=== PATIENT | female | born 1985 ===

== ENCOUNTER 2018-06-18 03:55 | Emergency (ER) | payer SELFPAY ==
[~2018-06-18] VITALS: Ht 157.5 cm; Wt 49.9 kg
--- OUTSIDE RECORDS SUMMARY | 2018-06-18 04:00 | XMS REPORT ---
Author Author Travis Sena [facility] Address [address] [place], [place] [id number] Care Team Providers Care Station Baggage Porter Name Role Phone Travis Sena PCP Allergies and Adverse Reactions Name Reaction Notes NO KNOWN DRUG ALLERGIES Plan of Treatment Planned Activity Comments Planned Date Planned Time Plan/Goal BMP 09/24/2016 12:00 AM CBC With Auto Differential 09/24/2016 12:00 AM Hemoglobin A1C 09/24/2016 12:00 AM BMP 12/21/2016 12:00 AM CBC With Auto Differential 12/21/2016 12:00 AM Hemoglobin A1C 12/21/2016 12:00 AM BMP 05/13/2017 12:00 AM CBC With Auto Differential 05/13/2017 12:00 AM Hemoglobin A1C 05/13/2017 12:00 AM Medications Active Name Start Date Estimated Completion Date SIG Comments FreeStyle Lite Strips miscellaneous strip 11/01/2017 tests blood sugar 6 to 8 times daily Novolog U-100 Insulin aspart 100 unit/mL subcutaneous solution 11/02/2017 inject by subcutaneous route per insulin dosing requires sliding scale due to insulin pump. 1 unit of novolog for every 10 carbs. 1 unit of novolog for every 50 it is over 120 for her blood sugars. Loads insulin pump w/175 units every 3 days Vyvanse 60 mg oral capsule 02/08/2018 03/10/2018 take 1 capsule (60 mg) by oral route once daily in the morning for 30 days Name Start Date Expiration Date SIG Comments Augmentin 875-125 mg oral tablet 11/01/2017 11/08/2017 take 1 tablet by oral route every 12 hours for 7 days Discontinued Name Start Date Discontinued Date SIG Comments Tamiflu 75 mg oral capsule 10/12/2017 11/01/2017 take 1 capsule (75 mg) by oral route once daily for 10 days Problem List Not available. Vital Signs Date Time BP-Sys(mm[Hg] BP-Elenita(mm[Hg]) HR(bpm) RR(rpm) Temp WT HT HC BMI BSA BMI Percentile O2 Sat(%) 02/08/2018 4:03:00 PM 100 mmHg 64 mmHg 103 bpm 18 rpm 98.2 F 90.25 lbs 60 in 17.6256 kg/m 1.3164 m 100 % 11/01/2017 4:06:00 PM 112 mmHg 70 mmHg 92 bpm 18 rpm 97.8 F 91.125 lbs 60 in 17.80 kg/m2 1.32 m2 100 % 08/12/2017 3:29:00 PM 100 mmHg 60 mmHg 86 bpm 16 rpm 97.2 F 91.25 lbs 60 in 17.82 kg/m2 1.32 m2 100 % 05/13/2017 3:43:00 PM 110 mmHg 68 mmHg 80 bpm 18 rpm 97.5 F 91.5 lbs 60 in 17.8697 kg/m 1.3255 m 100 % 12/21/2016 8:54:00 AM 100 mmHg 62 mmHg 86 bpm 16 rpm 97.1 F 91.6 lbs 60 in 17.89 kg/m2 1.33 m2 100 % 09/24/2016 10:02:00 AM 118 mmHg 70 mmHg 92 bpm 18 rpm 97.6 F 95 lbs 60 in 18.5532 kg/m 1.3506 m 100 % Social History Name Description Comments Tobacco Current every day smoker smokes 1/2 myra daily History of Procedures Date Ordered Description Order Status 08/12/2017 12:00 AM FLU VAC NO PRSV 4 ROSCOE 3 YRS+ Reviewed Results Summary Not available. History Of Immunizations Name Date Admin Mfg Name Mfg Code Trade Name Lot# Route Inj Vis Given Vis Pub CVX Influenza 08/12/2017 [employer]ax[employer]ir[employer] SKB FLULAVAL [id number] Intramuscular Left Deltoid 08/12/2017 04/19/2015 150 History of Past Illness Name Date of Onset Comments ADHD Diabetes type 1, uncontrolled Diabetes Mellitus, Type I ADD (attention deficit disorder) Sep 24 2016 10:14AM Diabetes mellitus type 1 Sep 24 2016 10:14AM ADD (attention deficit disorder) Dec 21 2016 9:00AM Diabetes mellitus type 1 Dec 21 2016 9:00AM ADD (attention deficit disorder) May 13 2017 3:45PM Diabetes mellitus type 1 May 13 2017 3:45PM Adult attention deficit disorder May 13 2017 3:45PM ADD (attention deficit disorder) Aug 12 2017 3:30PM Sinusitis Nov 01 2017 4:08PM joint terminal attack controller (current) use of insulin Nov 01 2017 4:08PM Type 1 diabetes Nov 01 2017 4:08PM ADD (attention deficit disorder) Nov 01 2017 4:08PM ADD (attention deficit disorder) Feb 08 2018 4:05PM Payers Insurance Name Company Name Plan Name Plan Number Policy Number Policy Group Number Start Date Cigna CIGNA [id number] N/A [facility] [id number] N/A BCBS [facility] [id number] N/A History of Encounters Visit Date Visit Type Provider 02/08/2018 Office visit Travis Sena MD 11/01/2017 Office visit Travis Sena MD 08/12/2017 Office visit Travis Sena MD 05/13/2017 Office visit Travis Sena MD 12/21/2016 Office visit Travis Sena MD 09/24/2016 Office visit Travis Sena MD 11/15/2013 [facility] Padmini Ceballos MD 04/18/2010 [facility] Padmini Ceballos MD 07/19/2009 Office visit Rashid Sanchez DO
--- OUTSIDE RECORDS SUMMARY | 2018-06-18 04:00 | XMS REPORT ---
Author Author Travis Sena [facility] Address [address] [place], [place] [id number] Care Team Providers Care Energy Engineer Name Role Phone Travis Sena PCP Allergies [...] U-100 Insulin aspart 100 unit/mL subcutaneous solution 11/01/2017 inject by subcutaneous route per insulin dosing requires individualization sliding scale due to insulin pump Vyvanse 60 mg oral capsule 11/01/2017 12/01/2017 take 1 capsule (60 mg) by oral route once daily in the morning for 30 days Augmentin 875-125 mg oral tablet 11/01/2017 11/08/2017 [...] HC BMI BSA BMI Percentile O2 Sat(%) 11/01/2017 4:06:00 PM 112 mmHg 70 mmHg 92 bpm 18 rpm 97.8 F 91.125 lbs 60 in 17.80 kg/m2 1.32 m2 100 % 08/12/2017 3:29:00 PM 100 mmHg 60 mmHg 86 bpm 16 rpm 97.2 F 91.25 lbs 60 in 17.8209 kg/m 1.3237 m 100 % 05/13/2017 3:43:00 PM 110 mmHg 68 mmHg 80 bpm 18 rpm 97.5 F 91.5 lbs 60 in 17.87 kg/m2 1.33 m2 100 % 12/21/2016 8:54:00 AM 100 mmHg 62 mmHg 86 bpm 16 rpm 97.1 F 91.6 lbs 60 in 17.8892 kg/m 1.3262 m 100 % 09/24/2016 10:02:00 AM 118 mmHg 70 mmHg 92 bpm 18 rpm 97.6 F 95 lbs 60 in 18.55 kg/m2 1.35 m2 100 % Social History Name Description Comments Tobacco Current every day smoker smokes 1/2 myra daily History of Procedures Date Ordered Description Order Status 08/12/2017 12:00 AM FLU VAC NO PRSV 4 ROSCOE 3 YRS+ Reviewed Results Summary Not available. History Of Immunizations Name Date Admin Mfg Name Mfg Code Trade Name Lot# Route Inj Vis Given Vis Pub CVX Influenza 08/12/2017 GlaxoSm[employer] SKB Flulaval [id number] Intramuscular Left Deltoid 08/12/2017 04/19/2015 150 [...] 2017 3:30PM Sinusitis Nov 01 2017 4:08PM alf (current) use of insulin Nov 01 2017 4:08PM Type 1 diabetes Nov 01 2017 4:08PM ADD (attention deficit disorder) Nov 01 2017 4:08PM Payers Insurance Name Company Name Plan Name Plan Number Policy Number Policy Group Number Start Date Nino CID [id number] N/A [facility] Benefit Services [facility] [id number] N/A BCBS [employer] [facility] [id number] N/A History of Encounters Visit Date Visit Type Provider 11/01/2017 Office visit Travis Sena MD 08/12/2017 Office visit Travis Sena MD 05/13/2017 Office visit Travis Sena MD 12/21/2016 Office visit Travis Sena MD 09/24/2016 Office visit Travis Sena MD 11/15/2013 [facility] Padmini Ceballos MD 04/18/2010 [facility] Padmini Ceballos MD 07/19/2009 Office visit Rashid Sanchez DO
--- OUTSIDE RECORDS SUMMARY | 2018-06-18 04:00 | XMS REPORT ---
Author Author Travis Sena [facility] Address [address] [place], [place] [id number] Care Team Providers Care Quartz Miner Name Role Phone Travis Sena PCP Allergies [...] 12:00 AM Hemoglobin A1C 05/13/2017 12:00 AM Flu vaccine 3 yrs & older, Quadrivalent, Preservative-free (single-dose syringe ) 08/12/2017 12:00 AM Medications Active Name Start Date Estimated Completion Date SIG Comments Novolog 100 unit/mL subcutaneous solution 09/24/2016 inject by subcutaneous route per insulin dosing requires individualization sliding scale due to insulin pump FreeStyle Lite Strips miscellaneous strip 09/24/2016 tests blood sugar 6 to 8 times daily Vyvanse 50 mg oral capsule 08/12/2017 09/11/2017 take 1 capsule (50 mg) by oral route once daily in the morning for 30 days Problem List Not available. Vital Signs Date Time BP-Sys(mm[Hg] BP-Elenita(mm[Hg]) HR(bpm) RR(rpm) Temp WT HT HC BMI BSA BMI Percentile O2 Sat(%) 08/12/2017 3:29:00 PM 100 mmHg 60 mmHg [...] smokes 1/2 myra daily History of Procedures Not available. Results Summary Not available. History Of Immunizations Not available. History of Past Illness Name Date of [...] (attention deficit disorder) Aug 12 2017 3:30PM Payers Insurance Name Company Name Plan Name Plan Number Policy Number Policy Group Number Start Date Cigna CIGNA [id number] N/A [facility] [id number] [facility] [id number] N/A History of Encounters Visit Date Visit Type Provider 08/12/2017 Office visit Travis Sena MD 05/13/2017 Office visit Travis Sena MD 12/21/2016 Office visit Travis Sena MD 09/24/2016 Office visit Travis Sena MD 11/15/2013 [facility] Padmini Ceballos MD 04/18/2010 [facility] Padmini Ceballos MD 07/19/2009 Office visit Rashid Sanchez DO
--- OUTSIDE RECORDS SUMMARY | 2018-06-18 04:00 | XMS REPORT | CCD ---
Author Author HAMILTON DWYER Unknown Address [address] [place], [place] [id number] Care Team Providers Care Medical Record Librarian Name Role Phone [facility] Attphys ARY RUANO DO Prisurg ESPERANZA Sears NASST BARBARA Lange NASST Vital Signs Vital Sign Value Unit Date/Time Recent/Initial? BP Systolic 113 mmHg 03/16/2016 13:40 Initial VS BP Diastolic 59 mmHg 03/16/2016 13:40 Initial VS Respiratory Rate 23 bpm 03/16/2016 13:40 Initial VS Heart Rate 113 bpm 03/16/2016 13:40 Initial VS Body Temperature 98.8 degrees 03/16/2016 13:50 Initial VS O2 % BldC Oximetry 100 % 03/16/2016 14:01 Initial VS Weight Measured 90 lbs 03/16/2016 15:03 Initial VS Height 59 in 03/16/2016 15:03 Initial VS BMI (Body Mass Index) 18.18 kg/m^2 03/16/2016 15:03 Initial VS BSA (Body Surface Area) 1.3 m^2 03/16/2016 15:03 Initial VS Weight Measured 102.7 lbs 03/17/2016 06:18 Most Recent VS Height 59 in 03/17/2016 06:18 Most Recent VS BMI (Body Mass Index) 20.74 kg/m^2 03/17/2016 06:18 Most Recent VS BSA (Body Surface Area) 1.39 m^2 03/17/2016 06:18 Most Recent VS Body Temperature 97.1 degrees 03/17/2016 08:00 Most Recent VS Respiratory Rate 17 bpm 03/17/2016 10:01 Most Recent VS BP Systolic 113 mmHg 03/17/2016 11:58 Most Recent VS BP Diastolic 71 mmHg 03/17/2016 11:58 Most Recent VS Heart Rate 90 bpm 03/17/2016 11:58 Most Recent VS O2 % BldC Oximetry 99 % 03/17/2016 11:58 Most Recent VS Allergies Allergy Code Allergy Type Reaction Status No Known Allergies 0 No known allergies Active Procedures Procedure Code Procedure Type Date ABDOMEN ACUTE SERIES 2738734 SNOMED CT 03/16/2016 BEDSIDE GLUCOSE 81087811 SNOMED CT 03/17/2016 BEDSIDE GLUCOSE 10087576 SNOMED CT 03/17/2016 BEDSIDE GLUCOSE 11470129 SNOMED CT 03/17/2016 BEDSIDE GLUCOSE 52764284 SNOMED CT 03/17/2016 BEDSIDE GLUCOSE 49636062 SNOMED CT 03/17/2016 BEDSIDE GLUCOSE 57722736 SNOMED CT 03/16/2016 BEDSIDE GLUCOSE 83758534 SNOMED CT 03/16/[address] 03/17/[address] 03/17/[address] 03/17/2016 COMPREHENSIVE METABOLIC PANEL 415250135 SNOMED CT 2015 CBC W/ AUTO DIFF (RFLX MAN DIFF IF IND) 1182014 SNOMED CT 03/17/2016 LIPID PANEL W/LDL 84516195 SNOMED CT 03/17/2016 MICROALBUMIN UR RANDOM 007393195 SNOMED CT 03/16/2016 BEDSIDE GLUCOSE 89906900 SNOMED CT 03/16/2016 BEDSIDE GLUCOSE 48589971 SNOMED CT 03/16/2016 HEMOGLOBIN A1C 35783910 SNOMED CT 03/16/[address] 03/16/2016 BASIC METABOLIC PANEL 738845960 SNOMED CT 03/16/2016 BEDSIDE GLUCOSE 17477479 SNOMED CT 03/16/2016 LACT[address]ID 1505[address] 03/16/[address] 03/16/[address] 03/16/2016 BEDSIDE GLUCOSE 02170677 SNOMED CT 03/16/[address] 03/16/2016 RAPID DRUG SCREEN 747102142 SNOMED CT 03/16/2016 CULTURE BLOOD 23934735 SNOMED CT 03/16/[address] 03/16/[address] 03/16/2016 VENOUS BLOOD GAS 86751917 SNOMED CT 03/16/2016 UA ROUTINE C&S IF IND 478370042 SNOMED CT 03/16/2016 COMPREHENSIVE METABOLIC PANEL 981629093 SNOMED CT 2015 CBC W/ AUTO DIFF (RFLX MAN DIFF IF IND) 9196779 SNOMED CT 03/16/2016 ^CBC W/AUTO DIFF 3191815 SNOMED CT 03/17/2016 ^UA WITH MICRO 068486818 SNOMED CT 03/16/2016 ^CBC W/ MANUAL DIFF 26220188 SNOMED CT 03/16/2016 History of Immunizations Immunization Code Date Tdap 115 11/17/2013 Influenza, seasonal, injectable 141 10/16/2011 Problems Problem Code Start Date Resolved Date Status DKA 121589216 Active Vomiting 949842210 Active Fever 998971542 Active DELIVERY NOS 14822 11/15/2013 03/17/2016 Resolved Insulin dependent diabetes mellitus 18480669 03/17/2016 Resolved Post op pain 599885402 11/15/2013 03/17/2016 Resolved Results BASIC METABOLIC PANEL - Collect Date/Time: 03/16/2016 16:25 Test Name Code Test Result Test Units Test Ref Range GLUCOSE 2345-7 159 MG/DL L=70 H=100 SODIUM 2951-2 136 MEQ/L L=135 H=148 POTASSIUM 2823-3 4.4 MEQ/L L=3.5 H=5.3 CHLORIDE 2075-0 109 MEQ/L L=96 H=110 CO2 2028-9 16 MEQ/L L=22 H=29 BUN 3094-0 15 MG/DL L=8 H=22 CREATININE 2160-0 0.7 MG/DL L=0.6 H=1.6 CALCIUM 16017-1 8.2 MG/DL L=8.2 H=10.6 AGE 31 yrs GFR NonAA 99 GFR AA 120 eGFR >60 N/A eGFR AA* >60 N/A BEDSIDE GLUCOSE - Collect Date/Time: 03/17/2016 11:53 Test Name Code Test Result Test Units Test Ref Range GLUCOSE POCT 229 MG/DL L=70 H=100 BEDSIDE GLUCOSE - Collect Date/Time: 03/17/2016 08:21 Test Name Code Test Result Test Units Test Ref Range GLUCOSE POCT 234 MG/DL L=70 H=100 BEDSIDE GLUCOSE - Collect Date/Time: 03/17/2016 06:39 Test Name Code Test Result Test Units Test Ref Range GLUCOSE POCT 99 MG/DL L=70 H=100 BEDSIDE GLUCOSE - Collect Date/Time: 03/17/2016 06:17 Test Name Code Test Result Test Units Test Ref Range GLUCOSE POCT 44 MG/DL L=70 H=100 BEDSIDE GLUCOSE - Collect Date/Time: 03/17/2016 02:05 Test Name Code Test Result Test Units Test Ref Range GLUCOSE POCT 114 MG/DL L=70 H=100 BEDSIDE GLUCOSE - Collect Date/Time: 03/16/2016 23:42 Test Name Code Test Result Test Units Test Ref Range GLUCOSE POCT 169 MG/DL L=70 H=100 BEDSIDE GLUCOSE - Collect Date/Time: 03/16/2016 21:15 Test Name Code Test Result Test Units Test Ref Range GLUCOSE POCT 302 MG/DL L=70 H=100 BEDSIDE GLUCOSE - Collect Date/Time: 03/16/2016 16:24 Test Name Code Test Result Test Units Test Ref Range GLUCOSE POCT 161 MG/DL L=70 H=100 BEDSIDE GLUCOSE - Collect Date/Time: 03/16/2016 15:08 Test Name Code Test Result Test Units Test Ref Range GLUCOSE POCT 194 MG/DL L=70 H=100 BEDSIDE GLUCOSE - Collect Date/Time: 03/16/2016 13:40 Test Name Code Test Result Test Units Test Ref Range GLUCOSE POCT 257 MG/DL L=70 H=100 BEDSIDE GLUCOSE - Collect Date/Time: 03/16/2016 11:22 Test Name Code Test Result Test Units Test Ref Range GLUCOSE POCT 343 MG/DL L=70 H=100 COMPREHENSIVE METABOLIC PANEL - Collect Date/Time: 03/17/2016 06:15 Test Name Code Test Result Test Units Test Ref Range GLUCOSE 2345-7 44 MG/DL L=70 H=100 SODIUM 2951-2 139 MEQ/L L=135 H=148 POTASSIUM 2823-3 3.7 MEQ/L L=3.5 H=5.3 CHLORIDE 2075-0 111 MEQ/L L=96 H=110 CO2 2028-9 21 MEQ/L L=22 H=29 BUN 3094-0 11 MG/DL L=8 H=22 CREATININE 2160-0 0.6 MG/DL L=0.6 H=1.6 SGOT/AST 1920-8 23 IU/L L=10 H=40 SGPT/ALT 1742-6 27 IU/L L=8 H=54 ALK PHOS 6768-6 46 IU/L L=35 H=115 TOTAL PROTEIN 2885-2 5.1 G/DL L=5.5 H=8.5 ALBUMIN 1751-7 3.5 G/DL L=3.1 H=5.4 TOTAL BILI 1975-2 0.9 MG/DL L=0.0 H=1.5 CALCIUM 08814-2 8.3 MG/DL L=8.2 H=10.6 AGE 31 yrs GFR NonAA 118 GFR AA 143 eGFR >60 N/A eGFR AA* >60 N/A COMPREHENSIVE METABOLIC PANEL - Collect Date/Time: 03/16/2016 11:30 Test Name Code Test Result Test Units Test Ref Range GLUCOSE 2345-7 409 MG/DL L=70 H=100 SODIUM 2951-2 137 MEQ/L L=135 H=148 POTASSIUM 2823-3 4.9 MEQ/L L=3.5 H=5.3 CHLORIDE 2075-0 98 MEQ/L L=96 H=110 CO2 2028-9 11 MEQ/L L=22 H=29 BUN 3094-0 19 MG/DL L=8 H=22 CREATININE 2160-0 1.2 MG/DL L=0.6 H=1.6 SGOT/AST 1920-8 41 IU/L L=10 H=40 SGPT/ALT 1742-6 37 IU/L L=8 H=54 ALK PHOS 6768-6 80 IU/L L=35 H=115 TOTAL PROTEIN 2885-2 7.7 G/DL L=5.5 H=8.5 ALBUMIN 1751-7 5.0 G/DL L=3.1 H=5.4 TOTAL BILI 1975-2 0.6 MG/DL L=0.0 H=1.5 CALCIUM 68425-8 10.2 MG/DL L=8.2 H=10.6 AGE 31 yrs GFR NonAA 53 GFR AA 64 eGFR 53 mL/min/1.7 eGFR AA* >60 N/A LIPASE - Collect Date/Time: 03/16/2016 11:30 Test Name Code Test Result Test Units Test Ref Range LIPASE 3040-3 16 U/L L=8 H=78 LIPID PANEL W/LDL - Collect Date/Time: 03/17/2016 06:15 Test Name Code Test Result Test Units Test Ref Range TRIGLYCERIDES 3043-7 92 MG/DL L=0 H=135 CHOLESTEROL 2093-3 106 MG/DL L=0 H=199 HDL 2085-9 55 MG/DL L=29 H=89 TOT CHOL/HDL 1.9 L=0.0 H=5.0 LDL 2089-1 27 MG/DL L=0 H=129 MICROALBUMIN UR RANDOM - Collect Date/Time: 03/16/2016 17:45 Test Name Code Test Result Test Units Test Ref Range MICROALBUMIN UR <0.5 MG/DL L=0.0 H=1.7 ALCOHOL - Collect Date/Time: 03/16/2016 11:30 Test Name Code Test Result Test Units Test Ref Range ETHANOL 5640-8 <10 MG/DL RAPID DRUG SCREEN - Collect Date/Time: 03/16/2016 14:00 Test Name Code Test Result Test Units Test Ref Range Cannabinoids (THC) NEGATIVE N/A NEG: < 50 ng/ ml Phencyclidine (PCP) NEGATIVE N/A NEG: < 25 ng/ ml Cocaine NEGATIVE N/A NEG: < 300 ng/ml Methamphetamine NEGATIVE N/A NEG: < 1000 ng/ml Opiates NEGATIVE N/A NEG: < 300 ng/ml Amphetamine NEGATIVE N/A NEG: < 1000 ng/ml Benzodiazepines NEGATIVE N/A NEG: < 300 ng/ml Tricyclic Antidepres NEGATIVE N/A NEG: < 300 ng/ ml Methadone NEGATIVE N/A NEG: < 300 ng/ml Barbiturates NEGATIVE N/A NEG: < 200 ng/ml Oxycodone NEGATIVE N/A NEG: < 100 ng/ml Propoxyphene (PPX) NEGATIVE N/A NEG: < 300 ng/ ml CBC W/ AUTO DIFF (RFLX MAN DIFF IF IND) - Collect Date/Time: 03/17/2016 06:15 Test Name Code Test Result Test Units Test Ref Range WBC 76557-5 14.7 TH/CMM L=4.5 H=10.8 RBC 789-8 4.37 ML/CMM L=4.20 H=5.40 HGB 718-7 12.7 G/DL L=12.0 H=16.0 HCT 4544-3 41.0 % L=37.0 H=47.0 MCV 94 FL L=81 H=99 MCH 29.1 PG L=27.0 H=33.0 MCHC 31.0 G/DL L=31.0 H=36.0 RDW SD 46 FL L=36 H=50 RDW CV 13.3 % L=0.0 H=14.8 MPV 9.9 FL L=9.3 H=12.5 PLT 777-3 249 TH/CMM L=130 H=440 NRBC# 0.00 TH/CMM L=0.00 H=0.00 NRBC% 0.0 /100WBC L=0.0 H=2.0 %NEUT 57.2 % %LYMP 35.4 % %MONO 6.2 % %EOS 0.7 % %BASO 0.2 % #NEUT 8.39 TH/CMM L=2.10 H=8.20 #LYMP 5.21 TH/CMM L=0.90 H=5.20 #MONO 0.91 TH/CMM L=0.16 H=1.00 #EOS 0.11 TH/CMM L=0.00 H=0.80 #BASO 0.03 TH/CMM L=0.00 H=0.20 MANUAL DIFF NOT IND N/A CBC W/ AUTO DIFF (RFLX MAN DIFF IF IND) - Collect Date/Time: 03/16/2016 11:30 Test Name Code Test Result Test Units Test Ref Range WBC 85118-8 26.3 TH/CMM L=4.5 H=10.8 RBC 789-8 5.09 ML/CMM L=4.20 H=5.40 HGB 718-7 14.8 G/DL L=12.0 H=16.0 HCT 4544-3 46.2 % L=37.0 H=47.0 MCV 91 FL L=81 H=99 MCH 29.1 PG L=27.0 H=33.0 MCHC 32.0 G/DL L=31.0 H=36.0 RDW SD 43 FL L=36 H=50 RDW CV 13.1 % L=0.0 H=14.8 MPV 9.8 FL L=9.3 H=12.5 PLT 777-3 379 TH/CMM L=130 H=440 NRBC# 0.00 TH/CMM L=0.00 H=0.00 NRBC% 0.0 /100WBC L=0.0 H=2.0 %NEUT 88.5 % %LYMP 5.1 % %MONO 5.3 % %EOS 0.0 % %BASO 0.4 % #NEUT 23.25 TH/CMM L=2.10 H=8.20 #LYMP 1.35 TH/CMM L=0.90 H=5.20 #MONO 1.38 TH/CMM L=0.16 H=1.00 #EOS 0.01 TH/CMM L=0.00 H=0.80 #BASO 0.10 TH/CMM L=0.00 H=0.20 SEGS 84 % BANDS 8 % LYMPHS 3 % MONOS 5 % MANUAL DIFF SEE BELOW N/A UA ROUTINE C&S IF IND - Collect Date/Time: 03/16/2016 13:30 Test Name Code Test Result Test Units Test Ref Range COLOR YELLOW N/A NL: YELLOW APPEARANCE CLEAR N/A NL: CLEAR SPEC GRAV 1.025 N/A NL: 1.002 - 1.022 pH 5.5 N/A NL: 5 - 9 PROTEIN NEGATIVE N/A NL: NEGATIVE mg/dl GLUCOSE >=1000 N/A NL: NEGATIVE mg/dl KETONE >=80 N/A NL: NEGATIVE mg/dl BILIRUBIN NEGATIVE N/A NL: NEGATIVE BLOOD NEGATIVE N/A NL: NEGATIVE NITRITE NEGATIVE N/A NL: NEGATIVE LEUK SCREEN NEGATIVE N/A NL: NEGATIVE MICRO INDICATED? SEE BELOW N/A WBC/HPF RARE N/A NL: NEGATIVE RBC/HPF NEGATIVE N/A NL: NEGATIVE CASTS/LPF NEGATIVE N/A NL: NEGATIVE CRYSTALS NEGATIVE N/A NL: NEGATIVE MUCOUS THRDS NEGATIVE N/A NL: NEGATIVE BACTERIA NEGATIVE N/A NL: NEGATIVE EPITH CELLS FEW SQUAMOUS N/A NL: NEGATIVE TRICHOMONAS NEGATIVE N/A NL: NEGATIVE YEAST NEGATIVE N/A NL: NEGATIVE CULT SET UP? NO N/A HEMOGLOBIN A1C - Collect Date/Time: 03/16/2016 11:30 Test Name Code Test Result Test Units Test Ref Range HGB A1C 10942-1 10.3 % L=4.0 H=6.4 Est Avg Glucose 30096-9 248.9 mg/dL TEST - Collect Date/Time: 03/16/2016 11:30 Test Name Code Test Result Test Units Test Ref Range TEST 8-8 NEGATIVE N/A T4 - Collect Date/Time: 03/17/2016 06:15 Test Name Code Test Result Test Units Test Ref Range T4 3026-2 3.9 UG/DL L=4.5 H=12.0 TSH - Collect Date/Time: 03/17/2016 06:15 Test Name Code Test Result Test Units Test Ref Range TSH 89264-5 1.46 mIU/L L=0.35 H=4.94 VENOUS BLOOD GAS - Collect Date/Time: 03/16/2016 11:30 Test Name Code Test Result Test Units Test Ref Range vPH 7.27 L=7.32 H=7.43 vPCO2 31 mmHG L=40 H=60 vPO2 48 mmHG L=30 H=55 vHCO3 14 mmol/L L=22 H=27 vTCO2 12 mmol/L L=24 H=28 vO2SAT 76 % L=40 H=85 FIO2 21 N/A vBE -12.1 N/A L=-2.0 H=2.0 LACTIC ACID - Collect Date/Time: 03/16/2016 16:25 Test Name Code Test Result Test Units Test Ref Range LACTIC ACID 2524-7 1.3 mmol/L L=0.5 H=1.6 LACTIC ACID - Collect Date/Time: 03/16/2016 11:30 Test Name Code Test Result Test Units Test Ref Range LACTIC ACID 2524-7 7.1 mmol/L L=0.5 H=1.6 MAGNESIUM - Collect Date/Time: 03/16/2016 16:25 Test Name Code Test Result Test Units Test Ref Range MAGNESIUM 28083-2 1.9 MG/DL L=1.7 H=2.8 MAGNESIUM - Collect Date/Time: 03/16/2016 11:30 Test Name Code Test Result Test Units Test Ref Range MAGNESIUM 46817-2 1.9 MG/DL L=1.7 H=2.8 PREALBUMIN - Collect Date/Time: 03/17/2016 06:15 Test Name Code Test Result Test Units Test Ref Range PREALBUMIN 57358-9 14 MG/DL L=17 H=34 Active Medications Medication Code Dose Units Frequency Route Modification Start Date/Time Lisinopril 2.5MG Oral Tablet 297588 1 TABLET DAILY BY MOUTH FOR HEART & KIDNEY PROTECTION 03/17/2016 12:02 Prescription Detail 1 TABLET BY MOUTH DAILY FOR HEART & KIDNEY PROTECTION Ranitidine 300MG Oral Tablet 659962 1 TABLET NEEDED DAILY BY MOUTH PRN DYSPEPSIA 03/17/2016 12:00 Prescription Detail 1 TABLET BY MOUTH NEEDED DAILY PRN DYSPEPSIA NovoLOG 100U/1ML Subcutaneous Solution 046577 0.9 UNIT PER HOUR VIA INSULIN PUMP SUBCUTANEOUS 03/17/2016 11 :59 Prescription Detail 0.9 UNIT SUBCUTANEOUS PER HOUR VIA INSULIN PUMP Vitamin Oral Tablet 298818 1 TABLET DAILY BY MOUTH 03/17/2016 11:59 Prescription Detail 1 TABLET BY MOUTH DAILY Medications Administered During Visit Medication Dose Units Frequency Route Date/ Time of Last Dose INSULIN DRIP 1UNIT/ML [PREDEFINED] 0.9 . PRN INTRAVENOUS 03/16/2016 16:00 NS 1000 ML IV [PREDEFINED] (7983) CONT IV IV 03/16/2016 14:27 PANTOPRAZOLE [PROTONIX] TABLET : 40 MG 40 MG DAILY PO 03/17/2016 09:20 INSULIN [NOVOLOG] 100UNITS/ML (SQ) 10ML 4.5 . Unit(s) PRN SUBCUTANEOUS 03/17/2016 08:51 NS 1000 ML IV [PREDEFINED] (7983) CONT IV IV 03/17/2016 05:53 INSULIN [NOVOLOG] 100UNITS/ML (SQ) 10ML 10 EA X1 SUB Q 03/16/2016 21:51 Encounters Encounter Diagnosis Diagnosis Code Start Date Type 1 diabetes mellitus with ketoacidosis without coma E1010 12/2015 Social History Smoking Status Code Start Date End Date Current every day smoker [id number] Patient Decision Aids Unknown or Not Available. Discharge Instructions You were admitted to [facility] on 03/16/2016 12:26 with a principal diagnosis of Type 1 diabetes mellitus with ketoacidosis without coma You had the following tests done: ALCOHOL BASIC METABOLIC PANEL BEDSIDE GLUCOSE BEDSIDE GLUCOSE BEDSIDE GLUCOSE BEDSIDE GLUCOSE BEDSIDE GLUCOSE BEDSIDE GLUCOSE BEDSIDE GLUCOSE BEDSIDE GLUCOSE BEDSIDE GLUCOSE BEDSIDE GLUCOSE BEDSIDE GLUCOSE CBC W / AUTO DIFF (RFLX MAN DIFF IF IND) CBC W/ AUTO DIFF (RFLX MAN DIFF IF IND) COMPREHENSIVE METABOLIC PANEL COMPREHENSIVE METABOLIC PANEL HEMOGLOBIN A1C LACTIC ACID LACTIC ACID LIPASE LIPID PANEL W/LDL MAGNESIUM MAGNESIUM MICROALBUMIN UR RANDOM PREALBUMIN TEST RAPID DRUG SCREEN T4 TSH UA ROUTINE C&S IF IND VENOUS BLOOD GAS You were discharged from [facility] on 03/17/2016 12:45 Should you have any questions prior to discharge, please contact a member of your healthcare team. If you have left the hospital and have any questions, please contact your primary care physician. HOME DIET: 2000 [address] DIET, DRINK AT LEAST 3 LITERS OF FLUID DAILY CONDITION AT DISMISSAL Stable. HOME MEDICATION INSTRUCTIONS: TAKE MEDICATIONS DIRECTED ACTIVITY INSTRUCTIONS(list limitations): Activity as Tolerated. RETURN TO WORK/SCHOOL: RETURN TO WORK ON WEDNESDAY, MARCH 18, 2016 SPECIAL INSTRUCTIONS: TRY TO MINIMIZE STRESS TO OPTAMIZE HEALTH CHECK BLOOD SUGAR BEFORE MEALS AND LOG. TAKE LOG WITH YOU TO DOCTOR APPOINTMENTS. IMMUNIZATIONS GIVEN DURING HOSPITALIZATION: NONE FOLLOW UP CARE - SEE YOUR PHYSICIAN: MAKE AN APPOINTMENT SOON POSSIBLE FOR INSULIN PUMP PHYSICIAN IN [place] TO HAVE ADJUSTMENTS MADE TO BETTER CONTROL BLOOD SUGARS MAKE AN APPOINTMENT FOR THIS WEEK WITH DR NUNO'S OFFICE. UNABLE TO MAKE APPOINTMENT AT THIS TIME DUE TO NO ANSWER AT OFFICE. PRIMARY CARE PHYSICIAN OR PRACTITIONER: Pedro Luis Nuno MD, . CALL YOUR PHYSICIAN IF YOU EXPERIENCE: Nausea/Vomiting, dizziness, pain. PERSONAL ITEMS RETURNED: Yes. INSTRUCTIONS GIVEN BY:(TYPE IN NAME AND DATE) ESPERANZA CASTILLO RN 03/17/16 SMOKING CESSATION: Smoking and second hand smoke is harmful, to your health.. For more information you can call:, [phone] TherapeuticsSTOP, or [phone] TherapeuticsUN[facility].. VOICES UNDERSTANDING OF INSTRUCTIONS: Yes. DISCHARGE INSTRUCTIONS GIVEN TO: Patient. BRING DISCHARGE INST TO NEXT OFFICE VISIT Yes. OTHER INSTRUCTIONS: INFORMATION ON CALORIE COUNTING PROVIDED FOR PATIENT. NEW PRESCRIPTS GIVEN TO PATIENT? YES: LISINOPRIL 2.5 MG 1 TAB BY MOUTH DAILY FOR KIDNEY AND HEART PROTECTION FROM DIABETES RANIDINE 300 MG 1 TABLET BY MOUTH DAILY NEEDED FOR INDIGESTION CHIEF COMPLAINT: DKA Chief Complaint and Reason For Visit Chief Complaint Date of Onset DKA Function Status Unknown or Not Available. Plan of Care Unknown or Not Available. Referral/Transition of Care Unknown or Not Available.
--- OUTSIDE RECORDS SUMMARY | 2018-06-18 04:01 | XMS REPORT ---
Author Author [facility] Medical Staff Organization [facility] Address [address], [place] [address] Phone [phone] Care Team Providers Care Transactional Paralegal Name Role Phone PETER BURSN, DAVID PP [phone] Summary purpose TRANSITION OF CARE AUTO GENERATION Chief Complaint and Reason for Visit No authorized Reason for Visit (Admitting Diagnosis) is available for this visit. Problem list No authorized problems tracked for continuity of care are available for this visit. Encounters No authorized problems tracked for encounter diagnoses are available for this visit. Medications No home medications recorded for this patient visit Allergies, adverse reactions, alerts No allergy information is available for this patient. Immunizations No immunizations recorded for this patient visit Relevant diagnostic tests and/or laboratory data No authorized results are available for this patient visit History of procedures No procedures recorded for this patient visit. Functional status No functional or cognitive status observations are available for this visit. Vital signs No authorized vital signs are available for this visit. Social history No Social History or smoking status observations were recorded for this visit. ( Unknown if ever smoked.) Treatment Plan No treatment plan text is available for this visit. Hospital discharge instructions No discharge instruction text is available for this visit.
--- OUTSIDE RECORDS SUMMARY | 2018-06-18 04:01 | XMS REPORT ---
Author Author Travis Sena [facility] Address [address] [place], [place] [address] Care Team Providers Care Digital Intern Name Role Phone Travis Sena PCP Unavailable Allergies and Adverse Reactions Name Reaction Notes [...] sugar 6 to 8 times daily Vyvanse 40 mg oral capsule 05/13/2017 06/12/2017 take 1 capsule (40 mg) by oral route once daily in the morning for 30 days Problem List Not available. Vital Signs Date Time BP-Sys(mm[Hg] BP-Elenita(mm[Hg]) HR(bpm) RR(rpm) Temp WT HT HC BMI BSA BMI Percentile O2 Sat(%) 05/13/2017 3:43:00 PM 110 mmHg 68 mmHg [...] mellitus type 1 May 13 2017 3:45PM Payers Insurance Name Company Name Plan Name Plan Number Policy Number Policy Group Number Start Date Cigna [employer] [id number] N/A [facility] Benefit Services [facility] Benefit Services [id number] N/A [id number] N/A History of Encounters Visit Date Visit Type Provider 05/13/2017 Office visit Travis Sena MD 12/21/2016 Office visit Travis Sena MD 09/24/2016 Office visit Travis Sena MD 11/15/2013 [facility] Padmini Ceballos MD 04/18/2010 [facility] Padmini Ceballos MD 07/19/2009 Office visit Rashid Sanchez DO
--- OUTSIDE RECORDS SUMMARY | 2018-06-18 04:01 | XMS REPORT | CCD ---
Author Author FAHEEM BARCENAS Organization Unknown Address [address] [place] [id number] Care Team Providers Care Encoding Clerk Name Role Phone PEDRO LUIS NUNO MD Attphys P., ALICE NASST S., JOURDAN DIAZ NASST S., LISSET NASST Vital Signs Vital Sign Value Unit Weight Measured 129 lbs Height 60 in BMI (Body Mass Index) 25.19 kg/m^2 BSA (Body Surface Area) 1.57 m^2 BP Systolic 123 mmHg BP Diastolic 75 mmHg BP Systolic 101 mmHg BP Diastolic 62 mmHg BP Systolic 111 mmHg BP Diastolic 68 mmHg BP Systolic 122 mmHg BP Diastolic 82 mmHg BP Systolic 106 mmHg BP Diastolic 68 mmHg BP Systolic 108 mmHg BP Diastolic 72 mmHg BP Systolic 112 mmHg BP Diastolic 65 mmHg BP Systolic 117 mmHg BP Diastolic 69 mmHg BP Systolic 101 mmHg BP Diastolic 62 mmHg BP Systolic 109 mmHg BP Diastolic 64 mmHg BP Systolic 106 mmHg BP Diastolic 68 mmHg BP Systolic 107 mmHg BP Diastolic 75 mmHg BP Systolic 119 mmHg BP Diastolic 78 mmHg BP Systolic 118 mmHg BP Diastolic 79 mmHg BP Systolic 123 mmHg BP Diastolic 87 mmHg BP Systolic 120 mmHg BP Diastolic 73 mmHg BP Systolic 118 mmHg BP Diastolic 74 mmHg BP Systolic 106 mmHg BP Diastolic 70 mmHg BP Systolic 122 mmHg BP Diastolic 76 mmHg Respiratory Rate 16 bpm Respiratory Rate 16 bpm Respiratory Rate 18 bpm Respiratory Rate 18 bpm Respiratory Rate 16 bpm Respiratory Rate 16 bpm Respiratory Rate 18 bpm Respiratory Rate 18 bpm Respiratory Rate 16 bpm Respiratory Rate 16 bpm Respiratory Rate 20 bpm Respiratory Rate 18 bpm Respiratory Rate 16 bpm Respiratory Rate 16 bpm Respiratory Rate 16 bpm Respiratory Rate 16 bpm Respiratory Rate 18 bpm Respiratory Rate 16 bpm Respiratory Rate 16 bpm Heart Rate 65 bpm Heart Rate 81 bpm Heart Rate 74 bpm Heart Rate 68 bpm Heart Rate 70 bpm Heart Rate 87 bpm Heart Rate 93 bpm Heart Rate 100 bpm Heart Rate 95 bpm Heart Rate 77 bpm Heart Rate 82 bpm Heart Rate 91 bpm Heart Rate 63 bpm Heart Rate 64 bpm Heart Rate 62 bpm Heart Rate 64 bpm Heart Rate 63 bpm Heart Rate 67 bpm Heart Rate 64 bpm O2 % BldC Oximetry 100 % O2 % BldC Oximetry 100 % O2 % BldC Oximetry 100 % O2 % BldC Oximetry 100 % O2 % BldC Oximetry 99 % O2 % BldC Oximetry 100 % O2 % BldC Oximetry 97 % O2 % BldC Oximetry 97 % O2 % BldC Oximetry 100 % O2 % BldC Oximetry 100 % O2 % BldC Oximetry 100 % O2 % BldC Oximetry 99 % O2 % BldC Oximetry 100 % O2 % BldC Oximetry 98 % O2 % BldC Oximetry 100 % O2 % BldC Oximetry 100 % O2 % BldC Oximetry 100 % O2 % BldC Oximetry 100 % O2 % BldC Oximetry 100 % Body Temperature 96.5 degrees Body Temperature 98.7 degrees Body Temperature 96.8 degrees Body Temperature 98 degrees Body Temperature 97 degrees Body Temperature 97.8 degrees Body Temperature 97 degrees Body Temperature 97.7 degrees Body Temperature 97.4 degrees Body Temperature 97.2 degrees Body Temperature 97.6 degrees Body Temperature 97.8 degrees Body Temperature 98 degrees Body Temperature 97.7 degrees Body Temperature 96.5 degrees Body Temperature 96.6 degrees Body Temperature 96.5 degrees Body Temperature 96.5 degrees Body Temperature 96.6 degrees Allergies Allergy Code Allergy Type Reaction Status No Known Allergies 0 No known allergies Active Procedures Unknown. History of Immunizations Immunization Code Date Tdap 115 11/17/2013 Influenza, seasonal, injectable 141 10/16/2011 Problems Problem Code Start Date Resolved Date Status DELIVERY NOS 42287 11/15/2013 Active Post op pain 064059204 11/15/2013 Active Insulin dependent diabetes mellitus 64871581 Active Results HEMOGRAM Test Name Code Test Result Test Units Test Date/ Time WBC 05758-9 20.3000 TH/CMM 11/16/2013 06:40 RBC 789-8 4.3500 ML/CMM 11/16/2013 06:40 HGB 718-7 13.4000 G/DL 11/16/2013 06:40 HCT 4544-3 39.6000 % 11/16/2013 06:40 MCV 91.0000 FL 11/16/2013 06:40 MCH 30.8000 PG 11/16/2013 06:40 MCHC 33.8000 G/DL 11/16/2013 06:40 RDW SD 45.0000 FL 11/16/2013 06:40 RDW CV 14.0000 % 11/16/2013 06:40 MPV 10.3000 FL 11/16/2013 06:40 PLT 777-3 248.0000 TH/CMM 11/16/2013 06:40 NRBC# 0.0000 TH/CMM 11/16/2013 06:40 NRBC% 0.0000 /100WBC 11/16/2013 06:40 GLUCOSE Test Name Code Test Result Test Units Test Date/ Time GLUCOSE 2345-7 108.0000 MG/DL 11/15/2013 05:30 CBC W/ MANUAL DIFF Test Name Code Test Result Test Units Test Date/ Time WBC 26277-4 13.4000 TH/CMM 11/15/2013 05:30 RBC 789-8 4.5800 ML/CMM 11/15/2013 05:30 HGB 718-7 13.9000 G/DL 11/15/2013 05:30 HCT 4544-3 41.4000 % 11/15/2013 05:30 MCV 90.0000 FL 11/15/2013 05:30 MCH 30.3000 PG 11/15/2013 05:30 MCHC 33.6000 G/DL 11/15/2013 05:30 RDW SD 45.0000 FL 11/15/2013 05:30 RDW CV 14.0000 % 11/15/2013 05:30 MPV 10.3000 FL 11/15/2013 05:30 PLT 777-3 234.0000 TH/CMM 11/15/2013 05:30 NRBC# 0.0000 TH/CMM 11/15/2013 05:30 NRBC% 0.0000 /100WBC 11/15/2013 05:30 %NEUT 64.1000 % 11/15/2013 05:30 %LYMP 28.8000 % 11/15/2013 05:30 %MONO 6.6000 % 11/15/2013 05:30 %EOS 0.4000 % 11/15/2013 05:30 %BASO 0.1000 % 11/15/2013 05:30 #NEUT 8.6200 TH/CMM 11/15/2013 05:30 #LYMP 3.8700 TH/CMM 11/15/2013 05:30 #MONO 0.8800 TH/CMM 11/15/2013 05:30 #EOS 0.0500 TH/CMM 11/15/2013 05:30 #BASO 0.0100 TH/CMM 11/15/2013 05:30 SEGS 62.0000 % 11/15/2013 05:30 BANDS 3.0000 % 11/15/2013 05:30 LYMPHS 34.0000 % 11/15/2013 05:30 EOS 1.0000 % 11/15/2013 05:30 ANISO 1+ N/A 11/15/2013 05:30 TYPE AND SCREEN Test Name Code Test Result Test Units Test Date/ Time ABO/Rh Type O Positive N/A 11/15/2013 05:30 Antibody Screen-Gel Negative N/A 11/15/2013 05: 30 Medications Medication Code Dose Units Frequency Route Modification Start Date/Time Stop Date/Time D5LR 1000ML IV [PREDEFINED] 093630 CONT IV IV 11/15/2013 07:02 ~~ D5LR 1000 ML (7929) IV BAG 942152 4766 ML CEFAZOLIN [ANCEF] IV 2GM (PREDEFINED) 913823 X1 IVPB 11/15/2013 07:44 11/15/2013 07:44 ~~ NACL 0.9%: 100 ML BAG 642937 100 ML ~~ CEFAZOLIN (ANCEF) INJ : 10 GM VIAL 426424 7341 MG ~~ REFRIGERATE!!! [id number] 1 EA BICITRA (SOD CITRATE/CITRIC ACID) 30ML 784033 30 ML X1 PO 11/15/2013 07:45 11/15/2013 07:45 FAMOTIDINE(PEPCID)IV BAMG 871077 X1 IV 11/15/2013 07:46 11/15/2013 07:46 ~~ FAMOTIDINE(PEPCID)IV BAMG 239700 50 ML METOCLOPRAMIDE [REGLAN] INJ: 10MG/2ML 075111 10 MG X1 IVP 11/15/2013 07:46 11/15/2013 07:46 VITAMIN TABS 7349072 1 EA DAILY PO 11/15/2013 10:01 FERROUS SULFATE 325MG TABLET 801379 325 MG PCBID PO 11/16/2013 10:01 ONDANSETRON [ZOFRAN] INJ 4 MG/2 ML VIAL 740759 4 MG PRN SIVP 11/15/2013 10:01 METOCLOPRAMIDE [REGLAN] INJ: 10MG/2ML 222698 10 MG Q6H IVP 11/15/2013 10:01 IBUPROFEN (MOTRIN) TAB:800 MG 670162 800 MG Q8H PO 11/15/2013 10:01 DOCUSATE SODIUM 100 MG [COLACE] CAPSULE 5166096 100 MG PRN PO 11/15/2013 10:01 ZOLPIDEM [AMBIEN] TABLET : 5 MG 829354 5 MG PRN PO 11/15/2013 10:01 DIPHENHYDRAMINE (BENADRYL) CAP : 25 MG 6541130 25 MG PRN PO 11/15/2013 10:01 SIMETHICONE [MYLICON] CHEW TAB: 80 MG 037661 80 MG PRN CHEW 11/15/2013 10:01 MMR II .5 ML 10X1 DS/VLS 595108 1 EA PRN SQ 11/15/2013 10:01 TUCKS PADS (WITCH LEO PADS) 71956029591 1 EA PRN TOPICAL 11/15/2013 10:01 PERCOCET 5/325 MG TABLET (ROXICET) 4305462 1 TAB PRN PO 11/15/2013 10:01 TETANUS DIPHTH PERTUSSIS [ADACEL] VIAL 7312356 0.5 ML PRN IM 11/15/2013 10:01 PATIENT BEING DISCHARGED TODAY, EDUCATE 06968319173 1 EA PRN PO 11/17/2013 12:56 Novolog 100U/ML Subcutaneous Solution 27725837165 1 EACH HOURLY SUBCUTANEOUS Vitamins Oral Tablet 379388 1 EACH EVERY 24 HOURS ORAL Vitamins Oral Tablet 967164 1 EACH EVERY 24 HOURS ORAL Novolog 100U/ML Subcutaneous Solution 14740330354 1 EACH HOURLY SUBCUTANEOUS Medications Administered Medication Dose Units Frequency Route Date/ Time of Last Dose VITAMIN TABS 1 TAB DAILY PO 2013 07:31 IBUPROFEN (MOTRIN) TAB:800 MG 800 MG Q8H PO 11/17/2013 05:04 PERCOCET 5/325 MG TABLET (ROXICET) 2 TAB PRN PO 11/17/2013 11:33 TETANUS DIPHTH PERTUSSIS [ADACEL] VIAL 0.5 ML PRN IM 11/17/2013 00:56 Encounters Unknown. Social History Smoking Status Code Start Date End Date Current every day smoker [id number] Patient Decision Aids Unknown. Instructions You were admitted to [facility] on 11/15/2013. You were discharged from [facility] on 11/17/2013. Should you have any questions prior to discharge, please contact a member of your healthcare team. If you have left the hospital and have any questions, please contact your primary care physician. DIET: Regular, Increase fiber, Avoid caffeninated beverages, Avoid alcohol. Eat high iron foods: grn vegs, red meats. HOME MEDICATION INSTRUCTIONS: Continue taking your vitamins, Continue Home Meds as listed above. Call doc before taking new or OTC meds. IF : Breastfeed on demand, Incr flds and cals to promote mlk prdctn. Avoid spicy/gas producing foods, Exprs milk every 3-4 hrs if unable to BF. If breast engorgement occurs:, apply moist heat/massage/or icepacks. Wear supportive bra, Ensure areola latch 1-1.5"past nipple. Observe for cracked and bleeding nipples. Use "soothies"for sore or cracked nipple. Use tea bags for sore or cracked nipples. Colostrum to nipples after each feed. ACTIVITIES: Refrain from smoking, Rest as possible.. Limit walking,standing & stair climbing., No heavy lifting.. Gradually resume normal activity. HYGIENE: May shower., Use ronna-bottle with Betasept:. after each urin. and BM until flow stops. Change pads with each urination or BM. BOWEL MOVEMENTS Stool softeners as needed, Avoid constipation. May take senokot, Milk of Magnesia. SEXUAL ACTIVITY Refrain from intercourse until pp exam. [id number] Abdominal exercises in 3-4 wks., Start slowly and increase as justin.. Post blues; Hormonal changes You may have emotional changes., You may be tearful.. This shouldn't last more than 2-3 wks., Call physician if you're concern. PAIN MANAGEMENT Non drug pain control methods, When to contact physician. NOTIFY PHYSICIAN OF: Chills, fever, painful urination, foul-smelling vaginal discharge. bleeding more than a period, temperature is greater than 100.4. dizziness or fainting, Painful breasts, Red, hot and extremely HARD breasts. redness or drainage from incision, unrelieved pain with medication. nausea or vomiting, cough or shortness of breath. cramping or swelling of legs. RELEVANT CONTACT INFORMATION: Dr Pedro Luis Nuno /[phone]. TREATMENTS: Always keep incisional area dry and raiza. Leave incision open to air if desired, Hemorrhoidal Care:. Tucks, frequent sitz baths, stool softeners and hemmorrhoid cream. Wash incision with soap and water, Cleanse with alcohol several times per d. No driving for at least 1 week, Leave steri-strips intact. SPECIAL INSTRUCTIONS: If you have cold/canker sores:, do not kiss/nuzzle NB til lesions clear. Wear binder as desires. DISCHARGED TO: Home. MODE OF TRANSPORTATION: Via wheelchair, to car.. ACCOMPANIED BY: , infant placed in car seat. PERSONAL EFFECTS/ VALUABLES SENT HOME: Yes. PATIENT/ FAMILY UNDERSTANDS INSTRUCTIONS: Verbalizes. SMOKING CESSATION: Smoking and second hand smoke is harmful, to your health.. Smoking has been linked to cancer, cardiac disease, COPD, and asthma.. For more information you can call:, 9-700-AHE-STOP, or 9-051-FTHEYelp.. A pamphlet on smoking was given to you, at admission.. NON- Apply firm fitting bra HUSSEIN, Avoid stim breasts to supress milk prod.. Apply ice packs if breasts engorged. CONTROL Discuss with dr at 4-6 wk pp visit. FOLLOW-UP: Follow up with Dr. Nuno on Wednesday or Wednesday of next week. INSTRUCTIONS GIVEN BY (TYPE IN NAME AND DATE) Alireza Tinsley RN. Chief Complaint and Reason For Visit Chief Complaint Date of Onset OB REPEAT CSECTION Function Status Unknown. Plan of Care Unknown. Referral/Transition of Care Unknown.
--- OUTSIDE RECORDS SUMMARY | 2018-06-18 04:01 | XMS REPORT ---
Author Author [facility] Medical Staff Organization [facility] Address [address], [place] [id number] Phone [phone] Care Team Providers Care Interpretive Naturalist Name Role Phone PETER BURNS, DAVID PP [phone] Summary purpose TRANSITION OF CARE AUTO GENERATION Chief Complaint and Reason for Visit Admit Diagnosis 1 BEREAVEMENT, UNCOMPLICAT Problem list No authorized problems tracked for [...] for this patient visit History of procedures Procedure Code Code Type Description Date Performed Performing Physician 51803 CPT-4 PSYTX PT&/FAMILY 60 MINUTES 05-23-2014 KOLE SETTER Functional status No functional or cognitive status [...]
--- OUTSIDE RECORDS SUMMARY | 2018-06-18 04:01 | XMS REPORT ---
Author Author Travis Sena [facility] Address [address] [place], [place] [phone] Care Team Providers Care Residential Sales Executive Name Role Phone Travis Sena PCP Unavailable [...] attention deficit disorder May 13 2017 3:45PM Payers Insurance Name Company Name Plan Name Plan Number Policy Number Policy Group Number Start Date Cigna CIGNA [id number] N/A [facility] Benefit Services [facility] Benefit [facility] [id number] N/A [facility] [id number] N/A History of Encounters Visit Date Visit Type Provider 05/13/2017 Office visit Travis Sena MD 12/21/2016 Office visit Travis Sena MD 09/24/2016 Office visit Travis Sena MD 11/15/2013 [facility] Padmini Ceballos MD 04/18/2010 [facility] Padmini Ceballos MD 07/19/2009 Office visit Rashid Sanchez DO
--- OUTSIDE RECORDS SUMMARY | 2018-06-18 04:01 | XMS REPORT ---
Author Author Travis Sena [facility] Address [address] [place], [place] [id number] Care Team Providers Care C Engineer Name Role Phone Travis Sena PCP Unavailable Allergies and Adverse Reactions Name Reaction Notes NO KNOWN DRUG ALLERGIES Plan of Treatment Planned Activity Comments Planned Date Planned Time Plan/Goal BMP 09/24/2016 12:00 AM CBC With Auto Differential 09/24/2016 12:00 AM Hemoglobin A1C 09/24/2016 12:00 AM Medications Active Name Start Date Estimated Completion Date SIG Comments Novolog 100 unit/mL subcutaneous solution 09/24/2016 inject by subcutaneous route per insulin dosing requires individualization sliding scale due to insulin pump Vyvanse 40 mg oral capsule 09/24/2016 10/24/2016 take 1 capsule (40 mg) by oral route once daily in the morning for 30 days FreeStyle Lite Strips miscellaneous strip 09/24/2016 tests blood sugar 6 to 8 times daily Problem List Not available. Vital Signs Date Time BP-Sys(mm[Hg] BP-Elenita(mm[Hg]) HR(bpm) RR(rpm) Temp WT HT HC BMI BSA BMI Percentile O2 Sat(%) 09/24/2016 10:02:00 AM 118 mmHg 70 mmHg [...] mellitus type 1 Sep 24 2016 10:14AM Payers Insurance Name Company Name Plan Name Plan Number Policy Number Policy Group Number Start Date Cigna CIGNA [id number] N/A [facility] [id number] N/A [facility] [id number] N/A History of Encounters Visit Date Visit Type Provider 09/24/2016 Office visit Travis Sena MD 11/15/2013 [facility] Padmini Ceballos MD 04/18/2010 [facility] Padmini Ceballos MD 07/19/2009 Office visit Rashid Sanchez DO
--- OUTSIDE RECORDS SUMMARY | 2018-06-18 04:02 | XMS REPORT | Continuity of Care Document ---
Demographics x Preferred Language Unknown Marital Status Unknown Holiness Affiliation Unknown Race Unknown Ethnic Group Unknown Author Author [facility] Organization [facility] Address Unknown Phone Unavailable Allergies There is no data. Medications There is no data. Problems Date Dx Coded Attending Type Code Diagnosis Diagnosed By 05/14/2014 KOLE GARCIA V62.82 BEREAVEMENT, UNCOMPLICAT 06/12/2014 KOLE GARCIA V62.82 BEREAVEMENT, UNCOMPLICAT 07/14/2014 KOLE GARCIA V62.82 BEREAVEMENT, UNCOMPLICAT Procedures Code [place] [address] PSYTX PT&/FAMILY 60 MINUTES 06/12/2014 Results There is no data. Encounters ACCT No. Visit Date/Time Discharge Status Pt. Type Provider Facility Loc./Unit Complaint [id number] 06/13/2014 00:01:00 07/13/2014 23:59:00 [facility] Outpatient [facility]OD[facility], [facility] PS[facility]CH [id number] 05/14/2014 00:00:00 06/12/2014 23:59:00 DIS Outpatient SETTRODDY, [facility] PSYCH [id number] 04/13/2014 00:01:00 05/13/2014 23:59:00 [facility] Outpatient JOSE, [facility] PS[id number] 06/13/2014 00:50:37 ACT Document Registration [id number] 02/08/2018 16:41:09 02/08/2018 23:59:59 [facility] Out[facility] Travis Sena [id number] 11/01/2017 16:38:40 11/01/2017 23:59:59 [facility] Out[facility] Travis Sena [id number] 08/12/2017 16:25:32 08/12/2017 23:59:59 [facility] Out[facility] Travis Sena [id number] 05/13/2017 16:40:35 05/13/2017 23:59:59 [facility] Out[facility] Travis Sena [id number] 12/21/2016 09:40:55 12/21/2016 23:59:59 [facility] Outpatient Travis Sena [id number] 09/24/2016 10:54:08 09/24/2016 23:59:59 [facility] Outpatient Travis Sena [id number] 12/12/2013 11:41:29 12/12/2013 23:59:59 [facility] Outpatient Padmini Ceballos
--- OUTSIDE RECORDS SUMMARY | 2018-06-18 04:02 | XMS REPORT ---
Author Author [facility] Medical Staff Organization [facility] Address [address] [place], [place] [address] Phone [phone] Care Team Providers Care Tripoler Name Role Phone PETER BURNS, DAVID PP [phone] Summary purpose TRANSITION OF CARE AUTO GENERATION [...]
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
[2018-06-18 04:30] VITALS: BP 120/94
== END 2018-06-18 04:32 ==
LOC: ER 03:57
DX: F10.10 Alcohol abuse, uncomplicated (principal); E11.9 Type 2 diabetes mellitus without complications
CPT/HCPCS: 99284